=== PATIENT | male | born 1985 | race Caucasian/White ===

== ENCOUNTER 2019-03-26 17:33 | Emergency (ER) | payer MEDICAID, OTHER ==
[~2019-03-26] VITALS: Ht 182.9 cm; Wt 98.8 kg
[2019-03-26 17:37] VITALS: Ht 182.9 cm; Wt 98.8 kg
[2019-03-26] MEDS ORDERED: morphine 4 MG/ML VIAL IM STA (18:06)
[2019-03-26] MEDS ORDERED: ONDANSETRON (ODT) 4 MG TAB ODT STA ×2 (18:06→22:47)
[2019-03-26] MEDS ORDERED: DIPHTH/TET/ACEL PERTUSS (ADULT) 0.5 ML VIAL IM* ONE (18:30)
[2019-03-26] MEDS ORDERED: OXYCODONE/ACETAMINOPHEN (10/325) TAB PO ONE (19:30)
[2019-03-26] MEDS ORDERED: BUPIVACAINE 0.25% (MPF) 10 ML 10 ML VIAL INJ ONE (21:00)
[2019-03-26] MEDS ORDERED: BUPIVACAINE 0.25% (MPF) 30 ML INJ INJ ONE (21:30)
[2019-03-26] MEDS ORDERED: HYDR-3980 PO (21:48)
[2019-03-26] MEDS ORDERED: IBUP-1542 PO (21:48)
[2019-03-26] MEDS ORDERED: CEPH-443 PO (21:50)
--- NOTE | 2019-03-26 22:05 | ERD ---
ER Documentation Chief Complaint Chief Complaint L hand 3-finger lac from handsaw 30 min ago HPI 33-year-old male no significant past medical history presents for laceration of the fingers on the left hand with a hand saw about 30 minutes ago. He states he was using hands on excellently slipped and injured his hand. He states he has 10 out of 10 pain. Pain described as sharp. No treatments tried at home, no other modifying factors noted. Denies fevers or chills. Unknown last tetanus shot. 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 Medications Home Meds Active Scripts Cephalexin* (Keflex*) 500 Mg Capsule, 500 MG PO TID for laceration for 7 Days, #21 CAP Prov:AMELIA PAUL DO 03/26/19 Ibuprofen* (Motrin*) 600 Mg Tab, 600 MG PO Q6H PRN for PAIN AND OR ELEVATED TEMP, #30 TAB Prov:AMELIA PAUL DO 03/26/19 Hydrocodone/Acetaminophen ([place] 10-325 Tablet) 1 Each Tablet, 1 EACH PO Q6H PRN for PAIN, #10 TAB Prov:PAULAMELIA COOL 03/26/19 Allergies Allergies: Coded Allergies: No Known Allergy (Unverified , 06/03/14) PMhx/Soc Medical and Surgical Hx: pt denies Medical Hx History of Surgery: No Anesthesia Reaction: No Hx Neurological Disorder: No Hx Respiratory Disorders: No Hx Cardiac Disorders: No Hx Psychiatric Problems: No Hx Miscellaneous Medical Probl: No Hx Alcohol Use: No Hx Substance Use: No Hx Tobacco Use: No Smoking Status: Never smoker FmHx Family History: No coronary disease Physical Exam Vitals Vital Signs Date Temp Pulse Resp B/P (MAP) Pulse Ox O2 O2 Flow FiO2 Time Delivery Rate 03/26/19 98.3 82 18 163/91 100 17:37 (115) Physical Exam Const: No acute distress Resp: Clear to auscultation bilaterally Cardio: Regular rate and rhythm, no murmurs Skin: No petechiae or rashes Neur: Awake and alert Psych: Normal Mood and Affect Upper Extremity -left hand: Skin: Complex laceration noted over the third finger and fourth finger distally Compartments: Soft Motor: Full active range of motion shoulder/elbow/wrist/hand, patient is able to move all fingers of the left hand Sensation: Intact shoulder/pinky/middle finger/thumb web space, sensation is intact in all fingers of the left hand Bones: Nontender humerus/elbow/forearm/wrist/there is diffuse tenderness to palpation of the third fourth and fifth finger Snuffbox: Nontender Joints: There is diffuse swelling over the third fourth and fifth digits Pulses/Perfusion: 2+ radial, cap is less than 2 seconds over the first and second digit, unable to assess cap refill of the third fourth and fifth digit due to the nature of the injury Results 24 hrs Current Medications Medications Dose Sig/Angelqiue Start Time Status Last (Trade) Ordered Route PRN Stop Time Admin Dose Reason Admin Morphine 4 mg ONCE STAT 03/26/19 DC 03/26/19 Sulfate IM 18:06 03/26/19 18:13 (morphine) 18:12 Ondansetron 4 mg ONCE STAT 03/26/19 DC 03/26/19 HCl (Zofran ODT 18:06 03/26/19 18:13 Odt) 18:12 Diphtheria/ 0.5 ml ONCE ONCE 03/26/19 DC 03/26/19 Tetanus/Acell IM* 18:30 03/26/19 18:18 Pertussis 18:31 (Adacel) Oxycodone/ 1 tab ONCE ONCE 03/26/19 DC 03/26/19 Acetaminophen PO 19:30 03/26/19 20:09 (Endocet 19:31 (10/ 325)) Bupivacaine 10 ml ONCE ONCE 03/26/19 DC HCl INJ 21:00 03/26/19 (Marcaine 21:01 0.25% (Mpf) 10 ml) Bupivacaine 10 ml ONCE ONCE 03/26/19 DC HCl INJ 21:30 03/26/19 (Marcaine 21:31 0.25% (Mpf) 30 ml) Procedures/MDM Laceration Repair by me: Anesthesia: 1% lidocaine locally Location: Left hand third and fourth digit Tendon/Joint/Nerves: No injury Foreign body: None detected after copious irrigation and exploration Technique: Simple Interrupted Sutures Complexity: No subcutaneous sutures/mucosal repair/edge excision Post Closure Length: 2 cm over the left third finger, 1 cm over the left fourth finger Patient's bleeding was easily controlled in the department and there is no indication of anemia. No evidence of compartment syndrome, neurologic injury, vascular injury, open joint, tendon laceration, or foreign body. Patient is appropriate for outpatient follow up. 48 hour wound check. Scar minimization instructions given. Splint Note Type: Volar splint for the left hand Location: Left hand Indication: Tuft fracture of the left hand third digit and fourth digit at the distal phalanx Splint Assessment: Neurovascularly intact post splint placement with good fit. Medical Decision Making: Patient presents with laceration over the third fourth and fifth finger of the hand Patient appeared well on physical exam. Patient was in a significant amount of pain. Patient is given pain medication including morphine, Percocet, digital nerve blo ck, patient's tetanus status was updated Patient's wound was irrigated extensively. X-ray left hand 3V interpreted by me and by radiologist: Scaphoid: Normal Bones: Proximal fracture of the distal tuft of the third digit at the distal phalanx, to fracture over the distal tuft at the distal phalanx of the left fifth digit, also noted is a fracture at the base of the distal phalanx of the left fourth digit Joints: No dislocation Foreign body: Small radiopaque foreign body noted no soft tissue of the the marci eminence There is no injury over the thenar eminence on physical examination, patient states that the foreign body in the thenar eminence may be from an old injury. The laceration was repaired, see procedure note above Patient was also placed in a volar splint of the left hand for the tuft fractures,, see procedure note above Case management consultation was made for referral to a hand surgeon advised to return to the ER in 48 hours for wound check, also return 10 to 14 days from now for stitches removal. Patient given prescription for [place] short course, as well as antibiotic. Patient advised to follow up with PCP in 1-2 days. Patient advised to return to ED for new or worsening symptoms. Patient stable on discharge from the ED. The patient has been prescribed [place] during this encounter. The patient has been warned about the use of narcotics. The patient should not drive or operate heavy machinery while taking this medication. The patient was also warned about the addictive properties of narcotic medications. Narcan prescription was NOT provided given the following criteria 1. No more than10 tablets of [place] were prescribed. 2. Concomitant opiate and benzodiazepine prescriptions were not provided. 3. There is no obvious evidence of prior history of opiate abuse or overdose. Disclaimer: Inadvertent spelling and grammatical errors are likely due to EHR/dictation software use and do not reflect on the overall quality of patient care. Also, please note that the electronic time recorded on this note does not necessarily reflect the actual time of the patient encounter. Departure Diagnosis: Primary Impression: Closed fracture of tuft of distal phalanx of finger Condition: Fair Patient Instructions: Finger and Toe Fractures (Broken Finger or Toe), Laceration, All Referrals: [facility] YOU HAVE RECEIVED A MEDICAL SCREENING EXAM AND THE RESULTS INDICATE THAT YOU DO NOT HAVE A CONDITION THAT REQUIRES URGENT TREATMENT IN THE EMERGENCY DEPARTMENT. FURTHER EVALUATION AND TREATMENT OF YOUR CONDITION CAN WAIT UNTIL YOU ARE SEEN IN YOUR DOCTORS OFFICE WITHIN THE NEXT 1-2 DAYS. IT IS YOUR RESPONSIBILITY TO MAKE AN APPOINTMENT FOR FOLOW-UP CARE. IF YOU HAVE A PRIMARY DOCTOR --you should call your primary doctor and schedule an appointment IF YOU DO NOT HAVE A PRIMARY DOCTOR YOU CAN CALL OUR PHYSICIAN REFERRAL HOTLINE AT IF YOU CAN NOT AFFORD TO SEE A PHYSICIAN YOU CAN CHOSE FROM THE FOLLOWING [facility] [address] [facility]. [facility] [address] [email or web address] [address] [facility] [facility] [address] [facility] [address] [facility] [address] [facility]. [facility]. [address] [facility] Urgent Care 7 a.m.- 11 p.m. Every Day of the Week NO APPOINTMENT OR AUTHORIZATION NEEDED Additional Instructions: Llame al doctor MAANA y margaret sumi CLARA PARA DENTRO DE 1-2 MOON.Dgale a la secretaria que nosotros le instruimos hacer esta clara.Avise o llame si garcia condicin se empeora antes de la clara. Regresa aqui si peor o no mejor. Return to ER in 48 hours for wound check Return in 10-14 days for wound check follow up with orthopedic hand surgery AMELIA PAUL DO March 26, 2019 22:05
[2019-03-26 22:37] VITALS: BP 126/75; PULSE 75; RESP 18
== END 2019-03-26 23:01 | disposition home or self-care (01) ==
LOC: FTE 17:33 → E/R 23:01
DX: S61.213A Laceration without foreign body of left middle finger without damage to nail, initial encounter (principal); S61.215A Laceration without foreign body of left ring finger without damage to nail, initial encounter; W27.0XXA Contact with workbench tool, initial encounter; Y92.9 Unspecified place or not applicable; Z23 Encounter for immunization
CPT/HCPCS: 12002; 73130; 90471; 90715; 96372; J2270; Z7502; Z7610

== ENCOUNTER 2019-04-08 05:16 | Day surgery (SDC) | payer OTHER ==
[2019-04-08] VITALS (12 sets, daily range): BP systolic 120–152; BP diastolic 73–86; PULSE 54–74; RESP 12–22
[~2019-04-08] VITALS: Ht 182.9 cm; Wt 96.3 kg
[~2019-04-08 05:16] MED LIST: CEPH-443 PO; HYDR-3980 PO; IBUP-1542 PO
[2019-04-08] MEDS ORDERED: CEFAZOLIN 2 GM/50 ML (PMX) 50 ML IVPB SCH (06:00)
[2019-04-08] MEDS ORDERED: LACTATED RINGER'S 1,000 ML IV SCH (06:00)
[2019-04-08] MEDS ORDERED: BUPIVACAINE 0.25% (MPF) 30 ML INJ ONE (07:00)
[2019-04-08] MEDS ORDERED: LIDOCAINE 1% (MPF) 30 ML INJ ONE (07:00)
[2019-04-08] MEDS ORDERED: POLYMYXIN/BACITRACIN 1L IRRIG ONE (07:01)
[2019-04-08] MEDS ORDERED: ONDANSETRON 4 MG INJ IV PRN (07:30)
[2019-04-08] MEDS ORDERED: MEPERIDINE 25 MG INJ IV PRN (07:30)
[2019-04-08] MEDS ORDERED: EPHEDrine 25 MG/5 ML SYG IV PRN (07:30)
[2019-04-08] MEDS ORDERED: FENTAnyl 50 MCG/ML VIAL IV PRN ×3 (07:30)
[2019-04-08] MEDS ORDERED: HYDROmorphONE 1 MG/5 ML IV SYRINGE IV PRN ×3 (07:30)
[2019-04-08] MEDS ORDERED: IPRATROPIUM (NEB) 0.5 MG/2.5 ML AMP HHN PRN (07:30)
[2019-04-08] MEDS ORDERED: LABETALOL HCL 20MG INJ IV PRN (07:30)
[2019-04-08] MEDS ORDERED: DIPHENHYDRAMINE 50 MG INJ IV PRN (07:30)
[2019-04-08] MEDS ORDERED: MIDAZOLAM 1 MG/ML 2 ML INJ IV PRN (07:30)
[2019-04-08] MEDS ORDERED: TRIMETHOBENZAMIDE 100 MG/ML VIAL IM PRN (07:30)
[2019-04-08] MEDS ORDERED: hydrALAzine 20 MG INJ IV PRN (07:30)
[2019-04-08] MEDS ORDERED: OXYCODONE/ACETAMINOPHEN (5/325) TAB PO PRN ×2 (07:30)
[2019-04-08] MEDS ORDERED: ALBUTEROL 0.083% (NEB) 2.5 MG/3 ML AMP HHN PRN (07:30)
--- NOTE | 2019-04-08 07:30 | PREAC ---
Date/Time of Note Date/Time of Note DATE: 04/08/19 TIME: 07:26 Anesthesia Eval and Record Evaluation Time Pre-Procedure Interview DATE: 04/08/19 TIME: 07:26 Age 33 Sex male NPO: 8 hrs Preoperative diagnosis left middle finger traumatic laceration, open fracture left middle finger Planned procedure washout and excisional debridement of the left middle finger traumatic laceration Past Medical History Past Medical History: None Surgery & Anesthesia Issues No known issue Meds Anticoagulation: No Beta Prashant within 24 hr: No Reason Beta Prashant not given: Pt. not on B-Prashant Discontinued Scripts Cephalexin* (Keflex*) 500 Mg Capsule, 500 MG PO TID for laceration for 7 Days, #21 CAP Prov:AMELIA PAUL 03/26/19 Ibuprofen* (Motrin*) 600 Mg Tab, 600 MG PO Q6H PRN for PAIN AND OR ELEVATED TEMP, #30 TAB Prov:AMELIA PAUL DO 03/26/19 Hydrocodone/Acetaminophen ([place] 10-325 Tablet) 1 Each Tablet, 1 EACH PO Q6H PRN for PAIN, #10 TAB Prov:AMELIA PAUL DO 03/26/19 Current Medications Lactated Ringer's 1,000 ml @ 20 mls/hr Q24H IV Last administered on 04/08/19at 06:05; Admin Dose 20 MLS/HR; Start 04/08/19 at 06:00; Stop 04/08/19 at 17:00 Cefazolin Sodium/ Dextrose 50 ml @ 100 mls/hr PREOP IVPB ; Start 04/08/19 at 06:00; Stop 04/08/19 at 17:00 Meds reviewed: Yes Allergies Coded Allergies: No Known Allergy (Unverified , 04/08/19) Allergies Reviewed: Yes Labs/Studies Labs Reviewed: Reviewed by anesthesiologist Result Diagram: 04/08/19 0541 04/08/19 0541 Laboratory Tests 04/08/19 05:41 test: N/A Studies: ECG (incimplete rbbb) Pre-procedure Exam Last vitals Vital Signs Date Temp Pulse Resp B/P (MAP) Pulse Ox O2 O2 Flow FiO2 Time Delivery Rate 04/08/19 97.5 74 18 138/80 99 Room Air 05:48 (99) Airway: Adequate mouth opening, Adequate thyromental dist Mallampati: Mallampati II Teeth: Normal Lung: Normal Heart: Normal ASA Physical Status ASA physical status: 1 Emergency: None Planned Anesthetic General/MAC: ETT, LMA Planned Pain Management Parenteral pain med Pre-operative Attestations Prior to commencing anesthesia and surgery, the patient was re-evaluated, there was verification of: *The patient's identity *The results of appropriate recent lab work and preoperative vital signs *The above evaluation not changing prior to induction *Anesthetic plan, risk benefits, alternative and complications discussed with patient/family; questions answered; patient/family understands, accepts and w ishes to proceed. Luis Enrique Robbins M.D. April 08, 2019 07:30
--- NOTE | 2019-04-08 07:42 | HPN ---
Date/Time of Note Date/Time of Note DATE: 04/08/19 TIME: 07:42 Interval H&P Admission Note Pt. seen H&P reviewed: No system changes PIA BECERRA April 08, 2019 07:42
[2019-04-08] MEDS ORDERED: NEOSTIGMINE 3 MG/3 ML SYRINGE ONE (07:48)
[2019-04-08] MEDS ORDERED: PROPOFOL 20 ML ONE (07:48)
[2019-04-08] MEDS ORDERED: GLYCOPYRROLATE 0.4 MG INJ ONE (07:48)
[2019-04-08] MEDS ORDERED: ROCURONIUM 50 MG INJ ONE (07:48)
[2019-04-08] MEDS ORDERED: CEFAZOLIN 1 GM INJ ONE (07:48)
[2019-04-08] MEDS ORDERED: ONDANSETRON 4 MG INJ ONE (07:51)
[2019-04-08] MEDS ORDERED: DEXAMETHASONE 4 MG/ML 5 ML INJ ONE (07:51)
[2019-04-08] MEDS ORDERED: MIDAZOLAM 1 MG/ML 2 ML INJ ONE (07:51)
[2019-04-08] MEDS ORDERED: FENTAnyl 50 MCG/ML VIAL ONE (07:51)
[2019-04-08] MEDS ORDERED: BUPIVACAINE 0.5% (SDV) 30 ML INJ ONE (08:02)
--- NOTE | 2019-04-08 08:28 | OPPN ---
Date/Time of Note Date/Time of Note DATE: 04/08/19 TIME: 08:27 Operative Report Preoperative Diagnosis left middle finger distal phalanx open fracture, nail bed injury Postoperative Diagnosis left middle finger distal phalanx open fracture, nail bed injury Operation/Procedure Performed washout left middle finger distal phalanx open fracture, open tx fx, nail bed repair, nail plate removal Surgeon see signature line hearing aid assistant none Anesthesia: general Estimated blood loss: 0 - 10 ml's Transfusion Required none Specimen none Grafts/Implants none Complications none PIA BECERRA April 08, 2019 08:28
--- NOTE | 2019-04-08 08:48 | PAC ---
Date/Time of Note Date/Time of Note DATE: 04/08/19 TIME: 08:48 Post-Anesthesia Notes Post-Anesthesia Note Last documented vital signs Vital Signs Date Temp Pulse Resp B/P (MAP) Pulse Ox O2 O2 Flow FiO2 Time Delivery Rate 04/08/19 97.5 74 18 138/80 99 Room Air 05:48 (99) Activity: WNL Respiratory function: WNL Cardiovascular function: WNL Mental status: Baseline Pain reasonably controlled: Yes Hydration appropriate: Yes Nausea/Vomiting absent: Yes Luis Enrique Robbins M.D. April 08, 2019 08:48
--- NOTE | 2019-04-08 16:17 | RADRPT ---
Vent Rate: 63 bpm RR Interval: 952 msec IL Interval: 158 msec QRS Duration: 113 msec QT Interval: 429 msec QTC Interval: 440 msec P-R-T [place]: 24 - -2 - 14 degrees Sinus rhythm...normal P axis, V-rate 50- 99 Incomplete right bundle branch block...QRSd >112, terminal axis(90,270) Low voltage, precordial leads...precordial leads <1.0mV Electronically Signed By: Zach Judge
--- NOTE | 2019-04-08 20:54 | OPR ---
DATE OF OPERATION: 04/08/2019 SURGEON: Pia Ingram MD ANESTHESIA: Local MAC. PREOPERATIVE DIAGNOSES: 1. Left middle finger traumatic wound at the distal phalanx. 2. Left middle finger distal phalanx fracture, extraarticular, comminuted, open fracture. 3. Left middle finger nail plate injury. 4. Left middle finger nail bed injury. POSTOPERATIVE DIAGNOSES: 1. Left middle finger traumatic wound at the distal phalanx. 2. Left middle finger distal phalanx fracture, extraarticular, comminuted, open fracture. 3. Left middle finger nail plate injury. 4. Left middle finger nail bed injury. PROCEDURE: 1. Washout, exploration and debridement of left middle finger traumatic wound. 2. Washout and excisional debridement of left middle finger distal phalanx open fracture. 3. Open treatment of left middle finger distal phalanx fracture, comminuted, extraarticular. 4. Removal of left middle finger nail plate 5. Left middle finger repair of nail bed. OPERATIVE FINDINGS: Traumatic injury, left middle finger, with injury to the nail plate, nail bed an d open fracture. INDICATION FOR PROCEDURE: A 33-year-old male with injury to left middle finger who was seen in [facility] and diagnosed with an open fracture as well as nail bed injury. We discussed the options. The pat ient elected to proceed with surgical intervention, understanding the risks and benefits. DESCRIPTION OF PROCEDURE: The patient was seen in the preoperative area and all further questions we re answered. Again, he gave informed consent understanding risks and benefits. He was taken to oper ative suite in the supine position. Sedation was administered as was Ancef 2 grams IV. Tourniquet w as placed in the left upper extremity and the left upper extremity was prepped with ChloraPrep stick and draped in the usual sterile fashion. Esmarch bandage was used to exsanguinate the extremity and tourniquet inflated to 250 mmHg. A digital nerve block was performed with 10 mL volume of 0.5% Shaheen ine injected at the base of the left middle finger. After adequate anesthesia, I first turned my att ention to removing the nail plate. A Cotter elevator was used to elevate the nail plate off of the na il bed, which had significant injury with a complex nail bed laceration. The nail plate was complete ly removed using a Cotter elevator as well as a needle local hazmat driver. After the nail plate was removed, I tu rned my attention to exploration, washout and debridement of the traumatic injury. The wound was cop breaker iously irrigated and devitalized nail bed and bone were removed. This was achieved using tenotomy sc issors and Adson forceps. Attention was then turned to washout of the open fracture. I was able to visualize the fracture through the nail bed injury and Adson forceps as well as a Ray-Carmen sponge, cur et and a tenotomy scissor was used to wash out and debride the left middle finger distal phalanx open fracture. After adequate debridement, I turned my attention to reapproximating the nail bed as well as treating the fracture itself. A 6-0 Vicryl suture was used to reapproximate the nail bed. After multiple sutures to repair the nail bed as well as a traumatic laceration, the fracture came into ac ceptable alignment improved from presurgery and I felt it was best to treat the comminuted injury wit hout any further fixation. With the fracture in good alignment and the nail bed repaired, the wound was again irrigated and Xeroform was placed in the wound followed by sterile gauze, Webril, and a Cob an dressing. Tourniquet was deflated after 16 minutes. The patient was awakened from anesthesia. H e was taken to the postoperative suite in stable condition. The patient tolerated procedure well wi thout complication. SPECIMENS: None. ESTIMATED BLOOD LOSS: 5 mL. COUNTS: Sponge, instrument, needle counts were correct. TOURNIQUET TIME: 16 minutes. CONDITION ON DISCHARGE: Stable. The patient was given nonrefillable 5-day prescription for pain medication for surgery today. Dictated By: PIA MOISE/ARCHANA Conf#: [id number] DID#: [id number]
== END 2019-04-08 10:37 | disposition home or self-care (01) ==
LOC: SDS 05:16
PROVIDERS: ATTEND Orthopaedic Surgery Hand Surgery
DX: S62.633B Displaced fracture of distal phalanx of left middle finger, initial encounter for open fracture (principal); X58.XXXA Exposure to other specified factors, initial encounter; I45.10 Unspecified right bundle-branch block
CPT/HCPCS: 11011; 26765; 71045; 80048; 85025; 85610; 85730; 93005; J0690; J1100; J2250; J2405; J2710; J3010; Z7512; Z7610